=== PATIENT | female | born 1980 | race Caucasian/White ===

== ENCOUNTER 2020-10-14 11:13 | Emergency (ER) | payer SELFPAY ==
[~2020-10-14] VITALS: Ht 157.5 cm; Wt 86.8 kg
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
[2020-10-14] MEDS ORDERED: ONDANSETRON ODT 4 MG TAB.RAPDIS PO ONE (11:45)
[2020-10-14] MEDS ORDERED: MORPHINE SULFATE 4 MG/ML DISP.SYRIN. IM ONE (11:45)
--- NOTE | 2020-10-14 12:09 | RAD ---
EXAM: XR SHOULDER_LEFT 2+ VIEWS 10/14/2020 11:47 AM CLINICAL INDICATION: Dislocation COMPARISON: None TECHNIQUE: 2 views of the left shoulder FINDINGS: No fracture or dislocation. Glenohumeral and acromioclavicular joints are normal. Soft tis yonas is normal. IMPRESSION: Normal left shoulder radiograph. Electronically signed by: Brianna Durbin MD (10/14/2020 12:07 PM) [id number]
[2020-10-14] MEDS ORDERED: MORPHINE SULFATE 4 MG/ML DISP.SYRIN. IV ONE (12:15)
[2020-10-14] MEDS ORDERED: HYDROcodone/APAP 7.5/325MG 1 TAB TABLET PO ONE (12:30)
[2020-10-14] MEDS ORDERED: HYDR-2759 PO (12:41)
[2020-10-14 12:45] VITALS: BP 134/94
== END 2020-10-14 12:50 | disposition home or self-care (01) ==
LOC: ER 11:13
DX: S43.005A Unspecified dislocation of left shoulder joint, initial encounter (principal); Z88.1 Allergy status to other antibiotic agents; V86.99XA Unspecified occupant of other special all-terrain or other off-road motor vehicle injured in nontraffic accident, initial encounter; Y93.89 Activity, other specified; Y92.89 Other specified places as the place of occurrence of the external cause; Y99.8 Other external cause status
CPT/HCPCS: 23650; 73030; 96372; 99284; J2270; Q0162